=== PATIENT | male | born 1990 | race Caucasian/White ===

== ENCOUNTER 2021-02-04 14:38 | Emergency (ER) | payer BC ==
[2021-02-04] MEDS ORDERED: Bupivacaine 0.5% 10 ML SDV INJECT ONE (14:59)
--- NOTE | 2021-02-04 15:05 | EDM.PDOC ---
ED HPI GENERAL MEDICAL PROBLEM - General Chief Complaint: Laceration Stated Complaint: THUMB LAC Time Seen by Provider: 02/04/21 14:50 Source of Information: Reports: Patient History Limitations: Reports: No Limitations - History of Present Illness INITIAL COMMENTS - FREE TEXT/NARRATIVE: 30-year-old male who resides close to [facility] presents to the ED with an acute deep laceration to the volar aspect of his distal right thumb. This occurred when his gloved hand came in contact with a table saw blade about an hour and a half prior to coming to the ED. 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 He states the thumb is intact. His tetanus toxoid is up-to-date within the last 10 years. He reports no other injuries. He is not on any blood thinners. Patient is right- hand dominant. Onset: Today, Sudden Onset Date: 02/04/21 Onset Time: 13:45 Duration: Minutes: Location: Reports: Upper Extremity, Right (Laceration to the distal aspect of his right thumb) Quality: Reports: Ache, Throbbing Severity: Mild Improves with: Reports: Rest Worsens with: Reports: Movement Context: Reports: Trauma (Volar aspect of his distal right thumb came in contact with a table saw blade at home.). 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: Other (see below) (None.) Right Finger-Thumb Pain Score (Numeric/FACES): 4 - Related Data Allergies Allergy/AdvReac Type Severity Reaction Status Date / Time No Known Allergies Allergy Verified 02/04/21 14:51 Home Meds: Home Meds Citalopram [Citalopram HBr] 20 mg PO DAILY 02/04/21 [History] Past Medical History Psychiatric History: Reports: Anxiety Social & Family History - Living Situation & Occupation Living situation: Reports: Occupation: Employed ED ROS GENERAL - Review of Systems Review Of Systems: See Below Constitutional: Reports: No Symptoms HEENT: Reports: Glasses Respiratory: Reports: No Symptoms Cardiovascular: Reports: No Symptoms Endocrine: Reports: No Symptoms GI/Abdominal: Reports: No Symptoms : Reports: No Symptoms Musculoskeletal: Reports: No Symptoms Skin: Reports: No Symptoms Neurological: Reports: No Symptoms Psychiatric: Reports: Anxiety, Depression Hematologic/Lymphatic: Reports: No Symptoms Immunologic: Reports: No Symptoms ED EXAM, SKIN/RASH Exam: See Below Exam Limited By: No Limitations General Appearance: Alert, WD/WN, No Apparent Distress, Other (Temperature is 36.6 degrees. Heart rate 70 and sinus respiratory 16 with O2 sats 100% room air. BP 154/89) Eye Exam: Bilateral Eye: Normal Inspection (No blepharal pallor or scleral icterus), PERRL Respiratory/Chest: No Respiratory Distress, Lungs Clear, Normal Breath Sounds, No Accessory Muscle Use Cardiovascular: Normal Peripheral Pulses, Regular Rate, Rhythm, No Edema, No Gallop, No JVD Extremities: Other (Examination of the right thumb reveals a laceration from nail to nail across the volar aspect of the right thumb. Flexor tendons appear to be intact. He has normal sensation to the ulnar and radial aspect of the distal thumb) Neurological: Alert, Oriented, CN II-XII Intact, Normal Cognition Psychiatric: Normal Affect, Normal Mood Skin: Warm, Dry, Intact, Normal Color, No Rash ED SKIN PROCEDURES - Laceration/Wound Repair Right Distal Digit - 1st (Thumb) Appearance: Subcutaneous, Irregular, Clean Distal NVT: Neuro & Vascular Intact Anesthetic Type: Digital Local Anesthesia - Bupivicaine (Marcaine): 0.5% Plain Local Anesthetic Volume: Other Skin Prep: Providone-Iodine (Betadine) Exploration/Debridement/Repair: Wound Explored, Moderate Debridement Closed with: Sutures Lac/Wound length In cm: 4.5 Suture Size: 3-0 # of Sutures: 16 Suture Type: Nylon, Interrupted, Simple Course - Vital Signs Last Recorded V/S: Last Vital Signs Temp 36.6 C 02/04/21 14:45 Pulse 70 02/04/21 14:45 Resp 16 02/04/21 14:45 BP 154/89 H 02/04/21 14:45 Pulse Ox 100 02/04/21 14:45 - Orders/Labs/Meds Meds: Medications Discontinued Medications Generic Name Dose Route Start Last Admin Trade Name Freq PRN Reason Stop Dose Admin Bupivacaine HCl 10 ml 02/04/21 14:59 02/04/21 15:14 Bupivacaine 0.5% 10 Ml Sdv INJECT 02/04/21 15:00 10 ml ONETIME ONE Administration - Radiology Interpretation Free Text/Narrative:: 30-year-old male presents to the ED with an acute injury to the volar aspect of his right thumb. This occurred when his thumb inadvertently came in contact with a table saw blade while wearing a glove. He has suffered a laceration from nail to nail on the volar aspect of the thumb. No apparent tendon injury or neurovascular bundle injury. Plan the thumb will be anesthetized with bupivacaine to provide a digital block. X-ray of the thumb will be performed. Wound will then be closed with sutures. It is estimated to be approximately 4.0 cm in length. - Re-Assessments/Exams Free Text/Narrative Re-Assessment/Exam: 02/04/21 16:13 Complicated laceration volar aspect of your distal right thumb occurred as a result of the thumb coming in contact with a table saw blade. Wound was cleansed and sutured under digital block using bupivacaine 0.5%. 16 sutures were used in total 2 bring the skin edges back together. Initial dressing placed in the ED should remain in place for 48 h and then should be taken off. The wound should be cleansed daily with soap and water. Showering is okay. Then apply topical antibiotic such as bacitracin or Polysporin to the wound and cover with bandages to keep clean. Sutures should be removed in 12 days time. Suggest use of Motrin 600 mg every 6 hours as needed for relief of pain. If pain not controlled by Motrin alone may use Percocet tab 5/325 mg strength 1 or 2 every 4-6 hours as well for pain relief. These should be taken with little food in your stomach as they can make you nauseated and empty stomach. Antibiotics to be doxycycline 100 mg twice daily for the next 12 days to prevent secondary wound infection. X-rays of the thumb reveal that there is a fracture at the distal aspect of the volar phalanx which does travel into the joint. Position of the bone fragment is satisfactory at this time. This means that the thumb bone will take at least 6 weeks to heal completely and should be protected by a splint for the next 4 weeks until the bone can start to heal. This should be followed up in clinic with an x-ray in a month's time. 02/04/21 18:39 : Of note radiologist reported no evidence of fracture of the distal phalanx right thumb. The fracture was missed by the radiologist. Departure - Departure Time of Disposition: 16:17 Disposition: Home, Self-Care 01 Clinical Impression: Laceration of right thumb with complication Qualifiers: Encounter type: initial encounter Qualified Code(s): S61.011A - Laceration without foreign body of right thumb without damage to nail, initial encounter Fracture of distal phalanx of finger, open Qualifiers: Encounter type: initial encounter Finger: thumb Fracture alignment: displaced Laterality: right Qualified Code(s): S62.521B - Displaced fracture of distal phalanx of right thumb, initial encounter for open fracture - Discharge Information *PRESCRIPTION DRUG MONITORING PROGRAM REVIEWED*: Not Applicable *COPY OF PRESCRIPTION DRUG MONITORING REPORT IN PATIENT [place]: Not Applicable Instructions: Thumb Fracture, Laceration Care, Adult, Dipl-ps-Aede Referrals: Reba Raymundo PA-C [Primary Care Provider] - Forms: ED Department Discharge Additional Instructions: Evaluation in the emergency room today in regards to a deep laceration to the volar aspect of your right thumb when it came in contact with a table saw blade this afternoon. It resulted in a 4 cm jagged laceration across the volar aspect of your thumb as well as a couple of small lacerations on the tip of the thumb that required suture repair. Wounds were repaired under local anesthetic using digital block with bupivacaine 0.5%. X-ray of the thumb reveals a fracture of the distal phalax which means the last bone in your thumb that comes in contact with the joint space. Position of the fractured fragment is satisfactory and could not be remedied by surgery. This will mean you will likely develop arthritis in the joint in the next 15 years. Initial dressing to remain in place for the next 48 h. Then the dressing could come off and the wound is to be cleansed daily with soap and water. Showering is okay. Then apply topical antibiotic such as bacitracin or Polysporin to the wound once daily and cover with a bandage to keep clean. A splint will be sent home with you that should be taped in place to hold your thumb straight for the next 4 weeks to allow the bone to start to heal. He will not be completely healed for about 6 to 8 weeks. However if you leave the splint on longer than 4 weeks the joint becomes very stiff. May use Motrin 600 mg every 6 hours as needed to relieve pain and inflammation. May use Percocet tabs 5/325 mg strength 1 or 2 every 4 hours if needed for the next 2 or 3 days for pain relief. If needed take with a little bit of food in your stomach as they may cause nausea on empty stomach. Antibiotic will be doxycycline 100 mg twice daily for the next 12 days to prevent secondary wound infection since this is an open fracture. Sutures will need to be removed in the clinic in 12 days time. An x-ray of the thumb should be done in approximately 1 month's time. Sepsis Event Note (ED) - Evaluation Sepsis Screening Result: No Definite Risk - Focused Exam Vital Signs: Vital Signs Temp Pulse Resp BP Pulse Ox 02/04/21 14:45 36.6 C 70 16 154/89 H 100
--- NOTE | 2021-02-04 15:49 | CR ---
Right thumb: 3 views of the right thumb were obtained. Comparison: Prior right hand exam of 07/31/17. Joint spaces are maintained. No acute fracture, dislocation or other bony abnormality is seen. Soft tissue injury is noted distally. Impression: 1. Soft tissue injury distally. 2. No acute bony abnormality is seen. Diagnostic code #2
== END 2021-02-04 16:44 | disposition home or self-care (01) ==
LOC: JD.ED 14:38
DX: S62.521B Displaced fracture of distal phalanx of right thumb, initial encounter for open fracture (principal); W27.0XXA Contact with workbench tool, initial encounter
CPT/HCPCS: 12002; 73140; 99283; J3490